=== PATIENT | male | born 1945 | race Caucasian/White ===

== ENCOUNTER 2018-09-30 07:43 | Inpatient (IN) | payer MEDICARE ==
[~2018-09-30] VITALS: Ht 167.6 cm; Wt 87.9 kg
[2018-10-02 07:32] VITALS: BP 153/70
== END 2018-10-02 12:10 | disposition home or self-care (01) | DRG 656 ==
LOC: ORIP 07:43 → OBSVTOIN 07:43 → INTOOBSV 07:43 → 4NOR 15:15 → DCLOUNGE 10-02 12:00
PROVIDERS: ADMIT Student in an Organized Health Care Education/Training Program; ATTEND Student in an Organized Health Care Education/Training Program
PROC: 0TT14ZZ Resection of Left Kidney, Percutaneous Endoscopic Approach (ICD-10-PCS; principal; 2018-09-30)
PROC: 0GT24ZZ Resection of Left Adrenal Gland, Percutaneous Endoscopic Approach (ICD-10-PCS; 2018-09-30)
PROC: 8E0W4CZ Robotic Assisted Procedure of Trunk Region, Percutaneous Endoscopic Approach (ICD-10-PCS; 2018-09-30)
DX: C64.2 Malignant neoplasm of left kidney, except renal pelvis (principal); N17.0 Acute kidney failure with tubular necrosis; I10 Essential (primary) hypertension; E78.5 Hyperlipidemia, unspecified; Z88.0 Allergy status to penicillin; I25.2 Old myocardial infarction
CPT/HCPCS: 36415; 80048; 82040; 85014; 85018; 85025; 86850; 86900; 88307; 93005; C1729; G0378; J0171; J0690; J1644; J2405; J2704; J2710; J3010; J3490; C1760; J0360; J2270; J7030; J7120